=== PATIENT | female | born 1955 | race Caucasian/White ===

== ENCOUNTER → 2017-11-19 | Outpatient (CLI) | payer BC ==
--- NOTE | 2017-11-21 08:07 | MM ---
Reason for exam: screening (asymptomatic). Last mammogram was performed 2 years and 10 months ago. History: Patient is postmenopausal. Family history of breast cancer in paternal aunt at age 50. Took hormonal contraceptives for 8 years beginning at age 18. Physical Findings: A clinical breast exam by your physician is recommended on an annual basis and results should be correlated with mammographic findings. MG Screening Mammo w CAD Bilateral CC and MLO view(s) were taken. Prior study comparison: January 31, 2015, right breast MG work up mamm w CAD RT. January 26, 2015, bilateral MG screening mammo w CAD. February 11, 2013, bilateral digital screening mammo w/CAD. December 31, 2011, CAD bilateral diagnostic mammogram. The breast tissue is heterogeneously dense. This may lower the sensitivity of mammography. No significant changes when compared with prior studies. ASSESSMENT: Negative, BI-RAD 1 RECOMMENDATION: Routine screening mammogram of both breasts in 1 year.
== END | disposition home or self-care (01) ==
LOC: RADMAMWWP 12:34
PROVIDERS: ATTEND Family Medicine
DX: Z12.31 Encounter for screening mammogram for malignant neoplasm of breast (principal)
CPT/HCPCS: 77067

== ENCOUNTER → 2018-11-19 | Outpatient (CLI) | payer BC ==
--- NOTE | 2018-11-19 10:52 | CT ---
EXAMINATION TYPE: CT foot LT wo con DATE OF EXAM: 11/19/2018 COMPARISON: None HISTORY: 62-year-old female Dislocation of tarsometatarsal joint. Known fracture at the TMT joint. TECHNIQUE: Contiguous axial scanning of the left foot without IV contrast. Coronal and sagittal recon structions performed. 3-D reconstructions generated on a dedicated independent workstation. CT DLP: 178 mGycm Automated exposure control for dose reduction was used. FINDINGS: Nondisplaced oblique fracture inferior aspect of the proximal first metatarsal at the TMT joint. Ther e is intra-articular extension into the TMT joint. Similar but comminuted fracture involving the plan tar base of the second and third metatarsals and a small fracture at the plantar proximal fourth meta tarsal all extending into the TMT joints. Tiny fragments are also present at the second-third intermetatarsal joint and dorsal aspect of the di stal lateral medial cuneiform at the expected attachment of the dorsal Lisfranc ligament. Additional punctate fracture debris is present at the dorsal aspect of the third-fourth and fourth-fifth TMT arleth nts. Tiny type I accessory navicular. There is no farzad midfoot malalignment at this time. No additional acute fracture or dislocation seen. IMPRESSION: OBLIQUE INTRA-ARTICULAR FRACTURE PLANTAR ASPECT OF THE FIRST METATARSAL BASE EXTENDING INTO THE FIRST TMT JOINT AND ADDITIONAL COMMINUTED FRACTURES ALONG THE PLANTAR ASPECTS OF THE SECOND THROUGH FOURTH METATARSAL BASES ALSO SHOWING INTRA-ARTICULAR EXTENSION. THERE ARE ADDITIONAL TINY FLECKS OF BONE AL DOC THE DORSAL ASPECT OF THE SECOND THROUGH FIFTH TMT JOINTS. FINDINGS COMPATIBLE WITH MULTIPLE AVULS ION FRACTURES ALONG THE LISFRANC LIGAMENT COMPLEX. NO FARZAD MIDFOOT MALALIGNMENT AT THIS TIME.
== END | disposition home or self-care (01) ==
LOC: RADCTMAIN 09:29
PROVIDERS: ATTEND Orthopaedic Surgery
DX: S92.312A Displaced fracture of first metatarsal bone, left foot, initial encounter for closed fracture (principal); S92.322A Displaced fracture of second metatarsal bone, left foot, initial encounter for closed fracture; S92.332A Displaced fracture of third metatarsal bone, left foot, initial encounter for closed fracture; S92.342A Displaced fracture of fourth metatarsal bone, left foot, initial encounter for closed fracture

== ENCOUNTER → 2020-11-09 | Outpatient (CLI) | payer MEDICARE ==
--- NOTE | 2020-11-10 13:06 | MM ---
Reason for exam: screening (asymptomatic). Last mammogram was performed 3 years ago. History: Patient is postmenopausal. Family history of breast cancer in paternal aunt at age 50. Took hormonal contraceptives for 8 years beginning at age 18. Physical Findings: A clinical breast exam by your physician is recommended on an annual basis and results should be correlated with mammographic findings. MG 3D Screening Mammo W/Cad Bilateral CC and MLO view(s) were taken. XCCL view(s) were taken of the left breast. Prior study comparison: November 19, 2017, bilateral MG screening mammo w CAD. January 31, 2015, right breast MG work up mamm w CAD RT. The breast tissue is heterogeneously dense. This may lower the sensitivity of mammography. No significant changes when compared with prior studies. ASSESSMENT: Benign, BI-RAD 2 RECOMMENDATION: Routine screening mammogram of both breasts in 1 year.
== END | disposition home or self-care (01) ==
LOC: RADMAMWWP 15:51
PROVIDERS: ATTEND Family Medicine
DX: Z12.31 Encounter for screening mammogram for malignant neoplasm of breast (principal); Z80.3 Family history of malignant neoplasm of breast
CPT/HCPCS: 77063; 77067

== ENCOUNTER → 2020-12-25 | Outpatient (CLI) | payer MEDICARE ==
--- NOTE | 2020-12-26 19:45 | MR ---
MR pelvis HISTORY: Left hip pain Multiplanar multisequence imaging obtained through the pelvis, no comparisons There is abnormal increased signal on T2-weighted sequences at the level of the superior pubic ramus laterally, intermediate signal on T1 weighted sequences, there is a fracture line present, coronal im age #6 T2 data set, approximately at the inferior pubic ramus on the left there is fracture line more medially, axial image #7 and 6 the T2 data set. Focal T2 bright signal is present within the muscula ture at this level just laterally measuring 2 cm in size with peripheral low signal which may be rela guillermo to prior hemorrhage, reactive signal changes are present within the musculature, similarly along the pelvic sidewall on the left there is a focal T2 bright focus, T1 intermediate signal possibly rel ated to prior hemorrhage. There is reactive marrow signal change present within the acetabulum medial ly and there is acetabular roof. No evident fracture within the left hip. 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 Degenerative disc changes are noted in the visualized spin e, there is a spinal curvature, facet arthropathy. At the level of the insertion of the gluteus tendon at the right greater trochanter there is some inc reased signal which may be due to strain or underlying bursitis. There is no free fluid in the pelvis . IMPRESSION: Superior and inferior pubic ramus fractures with associated soft tissue injury was. Addit ional findings above.
== END | disposition home or self-care (01) ==
LOC: RADMRIMAIN 10:27
PROVIDERS: ATTEND Orthopaedic Surgery
DX: S32.512A Fracture of superior rim of left pubis, initial encounter for closed fracture (principal); M79.89 Other specified soft tissue disorders; M41.9 Scoliosis, unspecified; M47.9 Spondylosis, unspecified; I10 Essential (primary) hypertension; E78.5 Hyperlipidemia, unspecified; M16.12 Unilateral primary osteoarthritis, left hip; R93.7 Abnormal findings on diagnostic imaging of other parts of musculoskeletal system
CPT/HCPCS: 72195

== ENCOUNTER → 2022-03-13 | Outpatient (CLI) | payer MEDICARE ==
--- NOTE | 2022-03-14 14:39 | MM ---
Reason for exam: screening (asymptomatic). Last mammogram was performed 1 year and 4 months ago. History: Patient is postmenopausal. Family history of breast cancer in paternal aunt at age 50. Took hormonal contraceptives for 8 years beginning at age 18. Physical Findings: A clinical breast exam by your physician is recommended on an annual basis and results should be correlated with mammographic findings. MG 3D Screening Mammo W/Cad Bilateral CC and MLO view(s) were taken. Prior study comparison: November 09, 2020, bilateral MG 3d screening mammo w/cad. November 19, 2017, bilateral MG screening mammo w CAD. The breast tissue is heterogeneously dense. This may lower the sensitivity of mammography. Benign appearing bilateral calcifications. No significant changes when compared with prior studies. ASSESSMENT: Benign, BI-RAD 2 RECOMMENDATION: Routine screening mammogram of both breasts in 1 year.
== END | disposition home or self-care (01) ==
LOC: RADMAMWWP 09:41
PROVIDERS: ATTEND Family Medicine
DX: Z12.31 Encounter for screening mammogram for malignant neoplasm of breast (principal); Z78.0 Asymptomatic menopausal state; Z80.3 Family history of malignant neoplasm of breast
CPT/HCPCS: 77063; 77067